=== PATIENT | male | born 1960 | race Caucasian/White ===

== ENCOUNTER 2022-12-26 14:22 | Emergency (ER) | payer OTHER ==
[2022-12-26 14:59] LABS: BASO % 0.4 % (0.0-1.0); EOS # 0.1 10^3/uL (0.0-0.5); EOS % 1.7 % (0.0-3.0); HEMATOCRIT 40.3 % (42.0-52.0); HEMOGLOBIN 13.1 g/dl (13.5-17.5); LYMPH # 1.1 10^3/uL (1.5-5.0); LYMPH % 15.4 % (24.0-44.0); MEAN CORPUSCULAR HEMOGLOBIN 29.6 pg (27.0-33.0); MEAN CORPUSCULAR HGB CONC 32.5 g/dl (32.0-36.5); MEAN CORPUSCULAR VOLUME 91.2 fl (80.0-96.0); MONO # 0.2 10^3/uL (0.0-0.8); MONO % 3.4 % (2.0-8.0); NEUTROPHILS # 5.6 10^3/uL (1.5-8.5); NEUTROPHILS % 78.8 % (36.0-66.0); PLATELET COUNT, AUTOMATED 224 10^3/uL (150-450); RED BLOOD COUNT 4.42 10^6/uL (4.30-6.10); WHITE BLOOD COUNT 7.1 10^3/uL (4.0-10.0)
[2022-12-26 15:12] LABS: INR 0.96
[2022-12-26 15:13] LABS: PARTIAL THROMBOPLASTIN TIME 25.3 SECONDS (24.8-34.2)
[2022-12-26] MEDS ORDERED: NS 1,000 ML IV ONE (15:20)
[2022-12-26 15:23] LABS: CK-MB VALUE MASS < 1.0 NG/ML (<3.6)
[2022-12-26 15:25] LABS: CPK CREATINE PHOSPHOKINASE 83 U/L (46-171)
[2022-12-26 15:26] LABS: ALBUMIN 3.8 G/DL (3.2-5.2); ALKALINE PHOSPHATASE 43 U/L (46-116); ALT/SGPT 15 U/L (7.0-40); AST/SGOT 18 U/L (<34); BILIRUBIN,DIRECT 0.2 MG/DL (<0.4); BILIRUBIN,TOTAL 0.5 MG/DL (0.3-1.2); BLOOD UREA NITROGEN 24 MG/DL (9-23); CALCIUM LEVEL 8.8 MG/DL (8.3-10.6); CARBON DIOXIDE LEVEL 31 MMOL/L (20-31); CHLORIDE LEVEL 103 MMOL/L (98-107); GLOMERULAR FILTRATION RATE > 60.0 (>49); GLUCOSE, FASTING 127 MG/DL (74-106); POTASSIUM SERUM 4.2 MMOL/L (3.5-5.1); SODIUM LEVEL 140 MMOL/L (136-145); TOTAL PROTEIN 6.2 G/DL (5.7-8.2)
[2022-12-26 15:27] LABS: THYROID STIMULATING HORMONE 2.558 uIU/ML (0.55-4.78)
[2022-12-26 15:28] LABS: FREE T4 1.02 NG/DL (0.89-1.76)
[2022-12-26] MEDS ORDERED: ISOVUE-370 76% 100ML VIAL As Ordered ONE (16:14)
[2022-12-26] MEDS ORDERED: Holter Monitor ×2 (16:47→17:29)
[2022-12-26 17:17] LABS: CK-MB VALUE MASS < 1.0 NG/ML (<3.6)
[2022-12-26 17:18] LABS: CPK CREATINE PHOSPHOKINASE 80 U/L (46-171); MB/CK RELATIVE INDEX 1.25 (< OR =4)
[2022-12-26 17:37] VITALS: BP 138/61
[2023-01-04] MEDS ORDERED: PRED10PA2 PO (07:37)
== END 2022-12-26 18:00 | disposition home or self-care (01) ==
LOC: M ED 14:22
DX: R55 Syncope and collapse (principal); R30.0 Dysuria; R11.0 Nausea; R00.1 Bradycardia, unspecified
CPT/HCPCS: 71046; 71275; 80048; 80076; 81001; 82550; 82553; 84439; 84443; 85025; 85610; 85730; 93005; 93041; 94760; 96360; 96361; 99285; Q9967

== ENCOUNTER → 2022-12-26 | Outpatient (CLI) | payer OTHER ==
[~2022-12-26] MED LIST: Holter Monitor; PRED10PA2 PO
== END ==
LOC: M CARPUL 17:59
PROVIDERS: ATTEND Internal Medicine
DX: R00.1 Bradycardia, unspecified (principal)

== ENCOUNTER → 2023-01-14 | Outpatient (CLI) | payer OTHER | LOC: M LABSMTC 10:19 | PROVIDERS: ATTEND Anesthesiology | DX: Z01.812 Encounter for preprocedural laboratory examination (principal) ==

== ENCOUNTER 2023-01-18 06:39 | Day surgery (SDC) | payer OTHER ==
[~2023-01-18] VITALS: Ht 172.7 cm; Wt 68.7 kg
[~2023-01-18 06:39] MED LIST changes: +NS 1,000 ML IV ONE
[2023-01-18] MEDS ORDERED: propofoL 200 MG/20 ML VIAL As Ordered ONE (08:19)
[2023-01-18 08:21] VITALS: BP 108/66
== END 2023-01-18 08:22 | disposition home or self-care (01) ==
LOC: M OPP 06:39 → EDUNIT# 07:30 → M OPP 08:22
PROVIDERS: ATTEND Surgery
DX: Z12.11 Encounter for screening for malignant neoplasm of colon (principal); Z86.010 Personal history of colon polyps; K63.5 Polyp of colon; K64.1 Second degree hemorrhoids; K57.30 Diverticulosis of large intestine without perforation or abscess without bleeding; G70.01 Myasthenia gravis with (acute) exacerbation; Z87.891 Personal history of nicotine dependence; Z79.52 Long term (current) use of systemic steroids

== ENCOUNTER → 2024-01-15 | Outpatient (CLI) | payer OTHER ==
[~2024-01-15] MED LIST changes: -NS 1,000 ML IV ONE
== END ==
LOC: M WHC 10:44
PROVIDERS: ATTEND Family Medicine Addiction Medicine
DX: Z79.899 Other long term (current) drug therapy (principal); M85.89 Other specified disorders of bone density and structure, multiple sites

== ENCOUNTER → 2025-01-14 | Outpatient (CLI) | payer OTHER | LOC: M SOG 07:45 | PROVIDERS: ATTEND Physician Assistant | DX: M16.11 Unilateral primary osteoarthritis, right hip (principal) ==

== ENCOUNTER → 2025-07-21 | Outpatient (REF) | payer MEDICARE ==
[2025-07-21 12:56] LABS: ALT/SGPT 17.0 U/L (7.0-40); AST/SGOT 19.0 U/L (<34); CALCIUM LEVEL 8.9 MG/DL (8.3-10.6); CARBON DIOXIDE LEVEL 31.0 MMOL/L (20-31); CHLORIDE LEVEL 102.0 MMOL/L (98-107); CHOLESTEROL LEVEL 219.0 MG/DL (<200); CHOLESTEROL RISK RATIO 3.1 (<5); CREATININE FOR GFR 0.95 MG/DL (0.70-1.30); GLOMERULAR FILTRATION RATE 88.8 (>49); LDL CHOLESTEROL 117.5 MG/DL (<100); NON-HDL-C 148.5 MG/DL; POTASSIUM SERUM 4.2 MMOL/L (3.5-5.1); SODIUM LEVEL 137.0 MMOL/L (136-145); TRIGLYCERIDES LEVEL 155.0 MG/DL (<150)
== END ==
LOC: M LAB REF 12:09
PROVIDERS: ATTEND Family Medicine Addiction Medicine
DX: Z82.49 Family history of ischemic heart disease and other diseases of the circulatory system (principal)